=== PATIENT | male | born 1950 | race African-American/Black ===

== ENCOUNTER 2021-09-24 04:32 | Day surgery (SDC) | payer OTHER ==
[2021-09-22 12:30] VITALS: BMI 31.1
[2021-09-24] MEDS ORDERED: SUCCINYLCHOLINE CHLORIDE 200 MG/10 ML SYRINGE ONE (10:35)
[2021-09-24] MEDS ORDERED: ceFAZolin SODIUM 1 GM VIAL IVPB ONE (11:45)
[2021-09-24] MEDS ORDERED: POVIDONE-IODINE OINTMENT 10% - 28.4 GM TUBE ONE (11:46)
[2021-09-24] MEDS ORDERED: PROPOFOL 20 ML ONE ×2 (11:52)
[2021-09-24] MEDS ORDERED: BACITRACIN 15 GM TUBE TOPICAL OINTMENT ONE (12:04)
[2021-09-24] MEDS ORDERED: BACITRACIN 15 GM TUBE TOPICAL OINTMENT TP ONE (12:29)
[2021-09-24 15:41] VITALS: BP 141/88; PULSE 83; TEMP 97
== END 2021-09-24 16:19 | disposition home or self-care (01) ==
LOC: JASU-SURG 04:32
PROVIDERS: ATTEND Urology
PROC: 0V503ZZ Destruction of Prostate, Percutaneous Approach (ICD-10-PCS; principal; 2021-09-24 12:00)
DX: C61 Malignant neoplasm of prostate (principal)
CPT/HCPCS: 55873; C2618; 94760